=== PATIENT | male | born 1980 | race Caucasian/White ===

== ENCOUNTER 2020-06-07 15:41 | Emergency (ER) | payer OTHER, SELFPAY ==
[2020-06-07 15:50] VITALS: BP 159/101; PULSE 77; RESP 18; TEMP 37.4; O2SAT 99
[2020-06-07 16:02] LABS: COVID19 -Nasal RAPID POSITIVE (Negative)
--- NOTE | 2020-06-07 16:15 | ED_ITS ---
HPI - Recheck/Abnormal Lab/Rx General Chief Complaint: Recheck/Abnormal Lab/Rx Stated Complaint: Wants COVID Test, Fatigued Time Seen by Provider: 06/07/20 15:52 Source: patient Mode of arrival: Ambulatory Limitations: no limitations History of Present Illness HPI narrative: Patient is a 40-year-old male who is here her COVID-19 test. He states he lives with a much his mother who tested positive today. He complains of being fatigued but he says he just got off work. He says his taste is a little bit off right now. She denies any change in smell no fever sore throat cough difficulty breathing or chest pain. Denies any medical problems. He works outside for himself Review of Systems Review of Systems Narrative: GENERAL: Denies chills, fatigue, malaise, fever, sweats, travel HEENT: See HPI RESPIRATORY: Denies dyspnea, cough, wheezing, hemoptysis, sputum. CARDIOVASCULAR: Denies chest pain, palpitations, orthopnea, edema GASTROINTESTINAL: Denies nausea, vomiting, abdominal pain, diarrhea, constipation, melena. : Denies dysuria, frequency, incontinence, hematuria, urinary retention, flank pain. MUSCULOSKELETAL: Denies weakness, joint pain, or bony pain SKIN: No rash, no erythema, no pruritus NEUROLOGIC: Denies weakness, dizziness, headache, numbness, change in speech, confusion PSYCHIATRIC: No concerning psychosocial issues. 12 point review of systems is negative except for those stated above and HPI Patient History Medical History Patient denies medical problems Substance Use Type: marijuana Exam Initial Vital Signs Initial Vital Signs: Vital Signs Temperature 99.3 F 06/07/20 15:50 Pulse Rate 77 06/07/20 15:50 Respiratory Rate 18 06/07/20 15:50 Blood Pressure 159/101 H 06/07/20 15:50 Pulse Oximetry 99 06/07/20 15:50 GENERAL: Well-appearing, well-nourished and in no acute distress. CARDIOVASCULAR: peripheral pulses in tact, cap refill <2 sec RESPIRATORY: No respiratory distress, speaks in full sentences without difficulty EXTREMITIES: Normal range of motion, no clubbing or edema. Neurovascularly intact NEUROLOGICAL: Cranial nerves II through XII grossly intact. Normal gait and speech. SKIN: Warm, dry, no petechiae, no rashes or lesions. Course Orders Ordered: ED Orders 06/07/20 15:51 COVID19 Stat Vital Signs Vital signs: Vital Signs - 8 hr 06/07/20 15:50 Temperature 99.3 F Pulse Rate 77 Respiratory Rate 18 Blood Pressure 159/101 H Pulse Oximetry 99 MDM - Recheck/Abnormal Lab/Rx Lab Data Labs: Lab Results 06/07/20 Range/Units 15:51 COVID-19 PCR Positive H (Negative) Discharge Plan Departure Patient Disposition: Home Clinical Impression: COVID-19 Activity Restrictions/Additional Instructions: Diagnosis: COVID-19 * please buy a home pulse oximeter and monitor your home oxygen. If oxygen dropped to 88% please come to the emergency department. * it is recommended that he take aspirin 325 mg once a day * recommend taking Tylenol 650 mg every 4-6 hours if needed for fever or pain- avoid NSAIDs *return to the ER if you are having increasing shortness of breath, low oxygen saturations at home Who needs to quarantine? People who have been in close contact with someone who has COVID-19?excluding people who have had COVID-19 within the past 3 months. People who have tested positive for COVID-19 do not need to quarantine or get tested again for up to 3 months as long as they do not develop symptoms again. People who develop symptoms again within 3 months of their first bout of COVID- 19 may need to be tested again if there is no other cause identified for their symptoms. What counts as close contact? You were within 6 feet of someone who has COVID-19 for a total of 15 minutes or more You provided care at home to someone who is sick with COVID-19 You had direct physical contact with the person (hugged or kissed them) You shared eating or drinking utensils They sneezed, coughed, or somehow got respiratory droplets on you Steps to take Stay home and monitor your health Stay home for 14 days after your last contact with a person who has COVID-19. Watch for fever (100.4?F), cough, shortness of breath, or other symptoms of COVID-19 If possible, stay away from others, especially people who are at higher risk for getting very sick from COVID-19 Referrals: [facility] [Outside]
[2020-06-07 16:48] VITALS: BP 154/96; PULSE 78; RESP 16; O2SAT 100
== END 2020-06-07 16:49 | disposition home or self-care (01) ==
PROVIDERS: Emergency Provider Emergency Medicine
DX: U07.1 COVID-19 (principal); R53.83 Other fatigue
CPT/HCPCS: 87635; 99281; 99282

== ENCOUNTER 2023-02-08 08:36 | Emergency (ER) | payer OTHER, MEDICAID, SELFPAY ==
[2023-02-08 08:44] VITALS: BP 133/67; PULSE 51; RESP 17; TEMP 36.6; O2SAT 100; BMI 26.4
--- NOTE | 2023-02-08 09:17 | ED.EXTPRO ---
HPI - Extremity Problem General Chief complaint: Extremity Problem,Nontraumatic Stated complaint: Bursa on knee Time Seen by Provider: 02/08/23 08:42 Source: patient Mode of arrival: Family Vehicle History of Present Illness HPI Narrative: 43-year-old male nonsmoker presents for recurrence of right knee bursa swelling. He states that he would initially injured it a couple weeks ago and was seen at a walk-in clinic a few days ago and had about 40 cc drained. He states that he has had frequent syncopal events with pain and had an episode when his knee was drained. He denies any fever or chills, no redness but states the swelling came back and is hoping we can drain it again. Related Data Allergies Allergy/AdvReac Type Severity Reaction Status Date / Time No Known Drug Allergies Allergy Verified 02/08/23 08:47 Review of Systems Review of Systems Narrative: GENERAL: Denies chills, fatigue, malaise, fever, sweats. HEENT: Denies sinus pain, ear pain, sore throat, difficulty swallowing, dizziness. RESPIRATORY: Denies dyspnea, cough, wheezing, hemoptysis, sputum. CARDIOVASCULAR: Denies chest pain, palpitations, orthopnea, edema, GASTROINTESTINAL: Denies nausea, vomiting, abdominal pain, diarrhea, constipation, melena. : Denies dysuria, frequency, incontinence, hematuria, urinary retention. MUSCULOSKELETAL: See HPI SKIN: Denies rash, skin lesions, or other NEUROLOGIC: Denies weakness, headache, numbness, change in speech, confusion, seizures, incoordination. PSYCHIATRIC: No concerning psychosocial issues. 12 point review of systems is negative except for those stated above Patient History Medical History Patient denies medical problems Social History Smoking Status: Never smoker Smoking Status: Never smoker alcohol intake frequency: 0-2 drinks per day Substance Use Type: marijuana Exam Narrative Exam Narrative: GEN: AOx3 and in mild distress EYES: Pupils are equal, round, and reactive to light and accommodation. Extraoccular muscles are intact bilaterally. There is no subconjunctival hemorrhage or exudate. CHEST: Lungs are clear to auscultation bilaterally and free of wheezes, rales, or rhonchi. Heart rate is regular rhythm, there are no murmurs, clicks, rubs, or gallops. There is no chest wall tenderness. ABD: Abdomen is soft and nontender. There is no guarding or rebound. Bowel sounds are normal in all 4 quadrants. There is no mass or organomegaly. EXT: Right knee with full range of motion, prepatellar swelling without erythema or warmth, no ligamentous laxity, no bony tenderness. SKIN: Warm, pink, and dry. No erythema or rash Initial Vital Signs Initial Vital Signs: Vital Signs Temperature 97.8 F 02/08/23 08:44 Pulse Rate 51 L 02/08/23 08:44 Respiratory Rate 17 02/08/23 08:44 Blood Pressure 133/67 02/08/23 08:44 Pulse Oximetry 100 02/08/23 08:44 Oxygen Delivery Method Room Air 02/08/23 08:44 Procedures Orthopedic Splinting/Casting Injury #1: Side: right Lower Extremity Injury Location: knee Lower Extremity Immobilizer: Ignacio wrap Misc Procedure Name of Procedure: Bursa drainage Location: Right prepatellar bursa Time out performed: Yes Technique/Description of procedure performed: Patient informed of risks and benefits, sterile dressing and sterile gloves by physician, anesthetized anterior knee with lidocaine 2% with epinephrine, 18 gauge needle inserted into prepatellar bursa with serosanguineous fluid easily drained, proximally 40 cc, patient experienced tremendous relief and tolerated procedure well Course Vital Signs Vital signs: Vital Signs - 8 hr 02/08/23 08:44 Temperature 97.8 F Pulse Rate 51 L Respiratory Rate 17 Blood Pressure 133/67 Pulse Oximetry 100 Oxygen Delivery Method Room Air MDM - Extremity (Nontraumatic) MDM Narrative Medical decision making narrative: [43] year old patient presents with recurrence of right bursa swelling on anterior knee Multiple etiologies for patient's symptoms considered including, but not limited to: [Traumatic bursitis versus infectious versus other] Prior Charts reviewed in our EMR Primary Historian: patient History and physical exam are reassuring, no fever or chills, no redness to suggest infection, fluid drainage was serosanguineous. Patient did have a brief syncopal episode during the procedure. He was seated, no injury, quickly came to. Symptoms greatly improved after procedure. Band-Aid over insertion site and compressive dressing placed Patient's symptoms improved over duration of stay with above-stated therapies. Findings and discharge diagnosis discussed with patient/family followed by verbalization of understanding Return precautions discussed with patient/family whom verbalize understanding of diagnosis and plan Discharge Plan Departure Patient Disposition: Home Clinical Impression: Bursitis, prepatellar, right Instructions: DI for Bursitis Activity Restrictions/Additional Instructions: *You have been diagnosed with [recurrence of right-sided prepatellar bursitis. As we discussed your history and physical exam are reassuring and there is no sign of infection. *What to do: *Please continue to take your regular medications as directed. [ ] New medication prescriptions sent to your pharmacy: [ ] [ ] New medication written as a paper prescription [ ] No new medications given *Please follow up with your primary care provider in 2-3 days, call for an appointment. Let them know you were seen in the Emergency Department and that we ask that you be seen in follow up. We will electronically transmit a record of today's note if your PCP is in our system * as we discussed please continue to use a compressive device, whether it be the Ignacio wrap that we provided or a sleeve for your knee that you have at home. *If you do not have a primary care provider please contact the [facility] Resource line at [phone]. They will ask some questions about your medical history and help get you set up with a doctor in the community. *Return to Emergency Department if you should have any new, worsening or concerning symptoms, such as [fever greater than 101 F, shaking chills, worsening pain, persistent vomiting or other bothersome symptoms] Referrals: Miscellaneous,Doctor, MD [Primary Care Provider] - Stand Alone Forms: Patient Portal/API
[2023-02-08 10:03] VITALS: BP 109/58; PULSE 51; RESP 14; O2SAT 100
--- NOTE | 2023-02-08 10:03 | PC.NURSE ---
Dr. horton reported patient passed out during the I and D. VSS . Patient is awake, drinking oj. declined food at this time
== END 2023-02-08 10:23 | disposition home or self-care (01) ==
PROVIDERS: Emergency Provider Emergency Medicine
DX: M70.41 Prepatellar bursitis, right knee (principal)
CPT/HCPCS: 20610; 99281; 99283

== ENCOUNTER → 2023-02-22 09:35 | Outpatient (CLI) | payer OTHER, MEDICAID, SELFPAY ==
--- NOTE | 2023-02-22 | DI.RAD.S_ITS ---
PROCEDURE: XR KNEE RT 3V INDICATIONS: Prepatellar bursitis, right knee TECHNIQUE: 3 views of the knee were acquired. COMPARISON: None. FINDINGS: Bones: No fractures or dislocations. No suspicious bony lesions. Soft tissues: Pronounced prepatellar soft tissue swelling. No definite joint effusion. IMPRESSION: No acute fracture visualized. If symptoms persist, follow-up radiographs and/or CT or MRI may be helpful for further evaluation. Dictated by: Rohit Palomino M.D. on 02/22/2023 at 11:26 Approved by: Rohit Palomino M.D. on 02/22/2023 at 11:29
== END ==
PROVIDERS: PCP Registered Nurse; Referring Provider Registered Nurse; Visit Provider Registered Nurse
DX: M70.41 Prepatellar bursitis, right knee (principal)
CPT/HCPCS: 73562